=== PATIENT | female | born 1995 | race African-American/Black ===

== ENCOUNTER 2016-06-25 20:05 | Emergency (ER) | payer OTHER ==
[~2016-06-25] VITALS: Ht 160 cm; Wt 113.4 kg
[~2016-06-25 20:05] MED LIST: BACTRIM,SEPT1 TABLET PO; CEFDINIR300 MG PO; CLEOCIN150 MG PO; FLAGYL500 MG PO; KEFLEX500 MG PO; MACROBID100 MG PO; MOTRIN800 MG PO; MOUTH SORE15 ML MM; NAPROSYN500 MG PO; PYRIDIUM100 MG PO; PYRIDIUM200 MG PO; ULTRACET1 TABLET PO; ZOFRAN4 MG PO
[2016-06-25 20:29] LABS: HEMATOCRIT 37.8 % (36.0-46.0); MCHC 33.1 G/DL (30.0-36.0); MCV 69.5 FL (83-99); MEAN PLAT.VOLUME 10.7 uM^3 (9.5-12.4); PLATELET COUNT 254 K/uL (156-360); RBC DIS.WIDTH-CV 15.6 % (11.8-14.6); RBC DIS.WIDTH-SD 38.8 % (39-53); RED BLOOD COUNT 5.44 M/uL (3.80-5.20); WHITE BLOOD COUNT 7.1 K/uL (4.1-10.2)
[2016-06-25 20:50] LABS: CHLORIDE 106 mEq/L (99-109); POTASSIUM 3.5 mEq/L (3.7-5.4); SODIUM 139 mEq/L (136-147)
[2016-06-25 20:53] LABS: GLUCOSE 107 mg/dL (70-99)
[2016-06-25 20:54] LABS: ANION GAP 11 MEQ/L (2-14)
[2016-06-25 20:55] LABS: TOTAL BILIRUBIN 0.5 mg/dL (0.0-1.0)
[2016-06-25 20:56] LABS: ALKALINE PHOSPHATASE 55 IU/L (3-129); GFR ESTIMATE (CALCULATED) > 59 mL/min/
[2016-06-25 20:57] LABS: UREA NITROGEN (BUN) 12 mg/dL (9-23)
[2016-06-25 20:58] LABS: QUANTITATIVE HCG < 4.0 MIU/ML
[2016-06-25 21:00] LABS: LIPASE 19 U/L (1.0-51.0)
[2016-06-25 21:29] LABS: ADD MIUA? YES; BILIRUBIN NEGATIVE; BLOOD TRACE; COLOR YELLOW ((YELLOW)); GLUCOSE (STRIP) NEGATIVE; KETONES NEGATIVE; LEUKOCYTES LARGE; NITRITE NEGATIVE; PH, URINE 5.5 (5-8); PROTEIN (STRIP) TRACE; SPECIFIC GRAVITY 1.021 (1.000-1.030); UROBILINOGEN 0.2 MG/DL (0.2-1.0)
[2016-06-25 21:53] LABS: BACTERIA 1+ /HPF; CASTS NONE SEEN /LPF; CRYSTALS NONE SEEN; EPITHELIAL CELLS 2+ /HPF; MUCUS NONE SEEN /LPF; PATHOLOGICAL CAST NONE SEEN; SMALL ROUND CELL NONE SEEN; UCUL ADDED? YES; WHITE BLOOD CELLS TNTC /HPF (0-5); YEAST-LIKE CELL NONE SEEN
[2016-06-25] MEDS ORDERED: KEFLEX500 MG PO (23:23)
[2016-06-25 23:37] VITALS: BP 131/87
[2016-06-26 12:46] LABS: CHLAMYDIA TRACHOMATIS NEGATIVE; NEISSERIA GONORRHOEAE NEGATIVE
== END 2016-06-25 23:38 | disposition home or self-care (01) ==
LOC: RME 20:05 → EME 20:05 → RME 23:38
PROVIDERS: Physician Assistant
DX: N30.00 Acute cystitis without hematuria (principal); F17.200 Nicotine dependence, unspecified, uncomplicated
CPT/HCPCS: 76856; 80053; 81003; 83690; 84702; 85027; 87086; 87210; 87491; 87591; 99281; 99284

== ENCOUNTER 2016-07-05 20:50 | Emergency (ER) | payer OTHER ==
[~2016-07-05] VITALS: Ht 160 cm; Wt 116.4 kg
[2016-07-05 21:33] LABS: INFLUENZA A VIRAL ANTIGEN NEGATIVE; INFLUENZA B VIRAL ANTIGEN NEGATIVE
[2016-07-05] MEDS ORDERED: MOTRIN600 MG PO (22:52)
[2016-07-05] MEDS ORDERED: ZITHROMAX Z-PA250 MG PO (22:52)
[2016-07-05 23:07] VITALS: BP 165/95
== END 2016-07-05 23:09 | disposition home or self-care (01) ==
LOC: EME 20:50
DX: J06.9 Acute upper respiratory infection, unspecified (principal); H92.03 Otalgia, bilateral; R11.0 Nausea; R00.0 Tachycardia, unspecified; F17.200 Nicotine dependence, unspecified, uncomplicated
CPT/HCPCS: 71020; 87502; 99281; 99284

== ENCOUNTER 2016-09-11 22:11 | Emergency (ER) | payer OTHER ==
[~2016-09-11] VITALS: Ht 154.9 cm; Wt 115.5 kg
[~2016-09-11 22:11] MED LIST changes: +MOTRIN600 MG PO; +ZITHROMAX Z-PA250 MG PO
[2016-09-11 22:52] LABS: HEMATOCRIT 39.5 % (36.0-46.0); MCH 22.8 PG (29.0-34.0); MCHC 31.6 G/DL (30.0-36.0); MCV 72.1 FL (83-99); RBC DIS.WIDTH-CV 15.9 % (11.8-14.6); RBC DIS.WIDTH-SD 40.6 % (39-53); RED BLOOD COUNT 5.48 M/uL (3.80-5.20); WHITE BLOOD COUNT 8.3 K/uL (4.1-10.2)
[2016-09-11 23:02] LABS: CHLORIDE 105 mEq/L (99-109); POTASSIUM 4.2 mEq/L (3.7-5.4); SODIUM 141 mEq/L (136-147)
[2016-09-11 23:04] LABS: GLUCOSE 102 mg/dL (70-99)
[2016-09-11 23:05] LABS: ANION GAP 11 MEQ/L (2-14)
[2016-09-11 23:06] LABS: TOTAL BILIRUBIN 0.4 mg/dL (0.0-1.0)
[2016-09-11 23:07] LABS: ALKALINE PHOSPHATASE 54 IU/L (3-129)
[2016-09-11 23:08] LABS: GFR ESTIMATE (CALCULATED) > 59 mL/min/
[2016-09-11 23:09] LABS: UREA NITROGEN (BUN) 14 mg/dL (9-23)
[2016-09-11 23:19] LABS: QUANTITATIVE HCG < 4.0 MIU/ML
[2016-09-11 23:23] LABS: ADD MIUA? YES; BILIRUBIN NEGATIVE; BLOOD NEGATIVE; COLOR YELLOW ((YELLOW)); GLUCOSE (STRIP) NEGATIVE; KETONES NEGATIVE; LEUKOCYTES SMALL; NITRITE NEGATIVE; PROTEIN (STRIP) NEGATIVE; SPECIFIC GRAVITY 1.014 (1.000-1.030); UROBILINOGEN 0.2 MG/DL (0.2-1.0)
[2016-09-11 23:33] LABS: BACTERIA RARE /HPF; EPITHELIAL CELLS 2+ /HPF; MUCUS TRACE /LPF; RED BLOOD CELLS 0-5 /HPF (0-5); UCUL ADDED? NO; WHITE BLOOD CELLS 0-5 /HPF (0-5)
[2016-09-11] MEDS ORDERED: ZOFRAN ODT4 MG PO (23:41)
[2016-09-11] MEDS ORDERED: BENTYL10 MG PO (23:41)
[2016-09-11] MEDS ORDERED: KEFLEX500 MG PO (23:41)
[2016-09-11 23:51] VITALS: BP 150/78
[2016-09-11 23:57] LABS: PLAT.SUFFICIENCY ADEQUATE; PLATELET COUNT 262 K/uL (156-360)
== END 2016-09-11 23:52 | disposition home or self-care (01) ==
LOC: EME 22:11
DX: N39.0 Urinary tract infection, site not specified (principal); F17.200 Nicotine dependence, unspecified, uncomplicated
CPT/HCPCS: 80053; 81003; 84702; 85027; 99281; 99284

== ENCOUNTER 2017-02-01 22:53 | Emergency (ER) | payer OTHER ==
[~2017-02-01] VITALS: Ht 157.5 cm; Wt 115.8 kg
[~2017-02-01 22:53] MED LIST changes: +BENTYL10 MG PO; +ZOFRAN ODT4 MG PO
[2017-02-01 23:11] VITALS: BP 168/84
[2017-02-01 23:54] LABS: CHLORIDE 109 mEq/L (99-109); POTASSIUM 3.7 mEq/L (3.7-5.4); SODIUM 144 mEq/L (136-147)
[2017-02-01 23:56] LABS: GLUCOSE 103 mg/dL (70-99)
[2017-02-01 23:58] LABS: ANION GAP 10 MEQ/L (2-14); TOTAL BILIRUBIN 0.5 mg/dL (0.0-1.0)
[2017-02-02] LABS: ALKALINE PHOSPHATASE 57 IU/L (3-129); GFR ESTIMATE (CALCULATED) > 59 mL/min/
[2017-02-02 00:01] LABS: UREA NITROGEN (BUN) 10 mg/dL (9-23)
[2017-02-02 00:03] LABS: HEMATOCRIT 39.6 % (36.0-46.0); MCH 23.1 PG (29.0-34.0); MCHC 32.1 G/DL (30.0-36.0); RBC DIS.WIDTH-CV 15.1 % (11.8-14.6); RBC DIS.WIDTH-SD 38.7 % (39-53); WHITE BLOOD COUNT 7.6 K/uL (4.1-10.2)
[2017-02-02 00:09] LABS: QUANTITATIVE HCG < 4.0 MIU/ML
[2017-02-02 01:08] LABS: MEAN PLAT.VOLUME 10.6 uM^3 (9.5-12.4); PLAT.SUFFICIENCY ADEQUATE; PLATELET COUNT 212 K/uL (156-360)
== END 2017-02-01 23:55 | disposition left against medical advice (07) ==
LOC: EME 22:53
DX: R10.9 Unspecified abdominal pain (principal); Z53.21 Procedure and treatment not carried out due to patient leaving prior to being seen by health care provider
CPT/HCPCS: 80053; 81003; 84702; 85027

== ENCOUNTER 2017-02-04 23:49 | Emergency (ER) | payer OTHER ==
[~2017-02-04] VITALS: Ht 157.5 cm; Wt 114.4 kg
[2017-02-05 01:23] LABS: ADD MIUA? YES; BILIRUBIN NEGATIVE; BLOOD NEGATIVE; COLOR YELLOW ((YELLOW)); GLUCOSE (STRIP) NEGATIVE; KETONES NEGATIVE; LEUKOCYTES LARGE; NITRITE NEGATIVE; PROTEIN (STRIP) NEGATIVE; SPECIFIC GRAVITY 1.016 (1.000-1.030); UROBILINOGEN 0.2 MG/DL (0.2-1.0)
[2017-02-05 01:34] LABS: HEMATOCRIT 36.4 % (36.0-46.0); MCH 23.4 PG (29.0-34.0); MCHC 32.7 G/DL (30.0-36.0); MCV 71.7 FL (83-99); MEAN PLAT.VOLUME 10.7 uM^3 (9.5-12.4); PLATELET COUNT 256 K/uL (156-360); RBC DIS.WIDTH-CV 14.8 % (11.8-14.6); RBC DIS.WIDTH-SD 38.1 % (39-53); RED BLOOD COUNT 5.08 M/uL (3.80-5.20); WHITE BLOOD COUNT 8.1 K/uL (4.1-10.2)
[2017-02-05 01:47] LABS: CHLORIDE 108 mEq/L (99-109); POTASSIUM 3.9 mEq/L (3.7-5.4); SODIUM 139 mEq/L (136-147)
[2017-02-05 01:49] LABS: GLUCOSE 94 mg/dL (70-99)
[2017-02-05 01:50] LABS: ANION GAP 11 MEQ/L (2-14)
[2017-02-05 01:51] LABS: TOTAL BILIRUBIN 0.4 mg/dL (0.0-1.0)
[2017-02-05 01:53] LABS: ALKALINE PHOSPHATASE 57 IU/L (3-129); GFR ESTIMATE (CALCULATED) > 59 mL/min/
[2017-02-05 01:54] LABS: UREA NITROGEN (BUN) 14 mg/dL (9-23)
[2017-02-05 01:56] LABS: LIPASE 21 U/L (1.0-51.0)
[2017-02-05 02:03] LABS: QUANTITATIVE HCG < 4.0 MIU/ML
[2017-02-05 02:08] LABS: BACTERIA 2+ /HPF; CASTS NONE SEEN /LPF; CRYSTALS NONE SEEN; EPITHELIAL CELLS 1+ /HPF; MUCUS NONE SEEN /LPF; RED BLOOD CELLS 0-5 /HPF (0-5); UCUL ADDED? YES
[2017-02-05] MEDS ORDERED: KEFLEX500 MG PO (02:15)
[2017-02-05 02:26] VITALS: BP 128/79
== END 2017-02-05 02:27 | disposition home or self-care (01) ==
LOC: EME 23:49
PROVIDERS: Physician Assistant Medical
DX: N39.0 Urinary tract infection, site not specified (principal); F17.210 Nicotine dependence, cigarettes, uncomplicated
CPT/HCPCS: 80053; 81003; 83690; 84702; 85027; 87086; 99281; 99284; J1885

== ENCOUNTER 2017-05-08 14:15 | Emergency (ER) | payer OTHER ==
[~2017-05-08] VITALS: Ht 157.5 cm; Wt 115.9 kg
[2017-05-08 14:37] LABS: HEMATOCRIT 39.5 % (36.0-46.0); MCH 23.4 PG (29.0-34.0); MCHC 32.4 G/DL (30.0-36.0); MCV 72.3 FL (83-99); MEAN PLAT.VOLUME 10.3 uM^3 (9.5-12.4); PLATELET COUNT 248 K/uL (156-360); RBC DIS.WIDTH-SD 38.5 % (39-53); RED BLOOD COUNT 5.46 M/uL (3.80-5.20); WHITE BLOOD COUNT 5.1 K/uL (4.1-10.2)
[2017-05-08 14:44] LABS: CHLORIDE 107 mEq/L (99-109); POTASSIUM 3.7 mEq/L (3.7-5.4); SODIUM 142 mEq/L (136-147)
[2017-05-08 14:47] LABS: GLUCOSE 109 mg/dL (70-99)
[2017-05-08 14:48] LABS: ANION GAP 10 MEQ/L (2-14)
[2017-05-08 14:49] LABS: TOTAL BILIRUBIN 0.4 mg/dL (0.0-1.0)
[2017-05-08 14:50] LABS: ALKALINE PHOSPHATASE 56 IU/L (3-129)
[2017-05-08 14:51] LABS: GFR ESTIMATE (CALCULATED) > 59 mL/min/
[2017-05-08 14:52] LABS: UREA NITROGEN (BUN) 6 mg/dL (9-23)
[2017-05-08 15:01] LABS: QUANTITATIVE HCG < 4.0 MIU/ML
[2017-05-08 15:29] LABS: ADD MIUA? YES; BILIRUBIN NEGATIVE; BLOOD SMALL; COLOR YELLOW ((YELLOW)); GLUCOSE (STRIP) NEGATIVE; KETONES NEGATIVE; LEUKOCYTES MODERATE; NITRITE NEGATIVE; PROTEIN (STRIP) NEGATIVE; SPECIFIC GRAVITY 1.024 (1.000-1.030); UROBILINOGEN 0.2 MG/DL (0.2-1.0)
[2017-05-08 15:35] LABS: BACTERIA RARE /HPF; EPITHELIAL CELLS 2+ /HPF; MUCUS TRACE /LPF; RED BLOOD CELLS 0-5 /HPF (0-5); UCUL ADDED? NO; WHITE BLOOD CELLS 0-5 /HPF (0-5)
[2017-05-08] MEDS ORDERED: DOXYCYCLINE MO100 MG PO (16:46)
[2017-05-08 16:52] VITALS: BP 134/76
[2017-05-09 14:24] LABS: CHLAMYDIA TRACHOMATIS NEGATIVE; NEISSERIA GONORRHOEAE NEGATIVE
== END 2017-05-08 17:01 | disposition home or self-care (01) ==
LOC: EME 14:15
PROVIDERS: Physician Assistant
DX: N73.9 Female pelvic inflammatory disease, unspecified (principal); F17.200 Nicotine dependence, unspecified, uncomplicated
CPT/HCPCS: 80053; 81003; 84702; 85027; 87210; 87491; 87591; 99281; 99284

== ENCOUNTER 2017-06-13 09:39 | Emergency (ER) | payer OTHER ==
[~2017-06-13] VITALS: Ht 157.5 cm; Wt 115.9 kg
[~2017-06-13 09:39] MED LIST changes: +DOXYCYCLINE MO100 MG PO
[2017-06-13 10:24] LABS: ALBUMIN 4.4 g/dL (3.2-4.8); CHLORIDE 109 mEq/L (99-109); POTASSIUM 3.6 mEq/L (3.7-5.4); SODIUM 141 mEq/L (136-147)
[2017-06-13 10:26] LABS: GLUCOSE 97 mg/dL (70-99); TOTAL PROTEIN 7.8 g/dL (6.4-8.3)
[2017-06-13 10:28] LABS: TOTAL BILIRUBIN 0.6 mg/dL (0.0-1.0)
[2017-06-13 10:30] LABS: ALKALINE PHOSPHATASE 66 IU/L (3-129); CREATININE 0.9 mg/dL (0.6-1.3); GFR ESTIMATE (CALCULATED) > 59 mL/min/
[2017-06-13 10:31] LABS: UREA NITROGEN (BUN) 11 mg/dL (9-23)
[2017-06-13 10:32] LABS: AST (GOT) 18 IU/L (2-34)
[2017-06-13 10:33] LABS: ALT (GPT) 17 IU/L (3-49)
[2017-06-13 10:36] LABS: APPEARANCE CLEAR ((CLEAR)); BILIRUBIN NEGATIVE; BLOOD SMALL; COLOR YELLOW ((YELLOW)); GLUCOSE (STRIP) NEGATIVE; KETONES NEGATIVE; LEUKOCYTES NEGATIVE; NITRITE NEGATIVE; PROTEIN (STRIP) NEGATIVE; SPECIFIC GRAVITY 1.016 (1.000-1.030); UROBILINOGEN 0.2 MG/DL (0.2-1.0)
[2017-06-13 10:38] LABS: QUANTITATIVE HCG < 4.0 MIU/ML
[2017-06-13 10:40] LABS: BACTERIA RARE /HPF; EPITHELIAL CELLS 1+ /HPF; MUCUS NONE SEEN /LPF; RED BLOOD CELLS 0-5 /HPF (0-5); UCUL ADDED? NO; WHITE BLOOD CELLS 0-5 /HPF (0-5)
[2017-06-13 10:46] LABS: HEMATOCRIT 42.2 % (36.0-46.0); HEMOGLOBIN 13.7 G/DL (11.9-15.5); MCH 23.5 PG (29.0-34.0); MCHC 32.5 G/DL (30.0-36.0); MCV 72.4 FL (83-99); PLATELET COUNT 273 K/uL (156-360); RBC DIS.WIDTH-CV 15.3 % (11.8-14.6); RBC DIS.WIDTH-SD 39.2 % (39-53); RED BLOOD COUNT 5.83 M/uL (3.80-5.20); WHITE BLOOD COUNT 4.8 K/uL (4.1-10.2)
[2017-06-13 12:30] VITALS: BP 123/78
== END 2017-06-13 12:35 | disposition home or self-care (01) ==
LOC: EME 09:39
DX: R10.30 Lower abdominal pain, unspecified (principal); F17.200 Nicotine dependence, unspecified, uncomplicated
CPT/HCPCS: 74176; 80053; 81003; 84702; 85027; 99281; 99285

== ENCOUNTER 2017-09-11 14:13 | Emergency (ER) | payer OTHER ==
[~2017-09-11] VITALS: Ht 157.5 cm; Wt 117.4 kg
[2017-09-11 16:24] LABS: ALBUMIN 3.8 g/dL (3.2-4.8); CHLORIDE 109 mEq/L (99-109); POTASSIUM 4.2 mEq/L (3.7-5.4); SODIUM 144 mEq/L (136-147)
[2017-09-11 16:26] LABS: GLUCOSE 97 mg/dL (70-99)
[2017-09-11 16:27] LABS: TOTAL PROTEIN 7.2 g/dL (6.4-8.3)
[2017-09-11 16:28] LABS: TOTAL BILIRUBIN 0.5 mg/dL (0.0-1.0)
[2017-09-11 16:30] LABS: ALKALINE PHOSPHATASE 70 IU/L (3-129); CREATININE 0.8 mg/dL (0.6-1.3); GFR ESTIMATE (CALCULATED) > 59 mL/min/
[2017-09-11 16:31] LABS: UREA NITROGEN (BUN) 10 mg/dL (9-23)
[2017-09-11 16:32] LABS: AST (GOT) 16 IU/L (2-34)
[2017-09-11 16:33] LABS: ALT (GPT) 14 IU/L (3-49); LIPASE 20 U/L (1.0-51.0)
[2017-09-11 16:41] LABS: QUANTITATIVE HCG < 4.0 MIU/ML
[2017-09-11 16:46] LABS: HEMATOCRIT 40.1 % (36.0-46.0); HEMOGLOBIN 13.1 G/DL (11.9-15.5); MCH 23.9 PG (29.0-34.0); MCHC 32.7 G/DL (30.0-36.0); MCV 73.3 FL (83-99); PLATELET COUNT 276 K/uL (156-360); RBC DIS.WIDTH-SD 39.4 % (39-53); RED BLOOD COUNT 5.47 M/uL (3.80-5.20); WHITE BLOOD COUNT 6.5 K/uL (4.1-10.2)
[2017-09-11 17:11] LABS: APPEARANCE SL.HAZY ((CLEAR)); BILIRUBIN NEGATIVE; BLOOD NEGATIVE; COLOR YELLOW ((YELLOW)); GLUCOSE (STRIP) NEGATIVE; KETONES NEGATIVE; LEUKOCYTES NEGATIVE; NITRITE NEGATIVE; PROTEIN (STRIP) NEGATIVE; SPECIFIC GRAVITY 1.019 (1.000-1.030)
[2017-09-11 17:20] LABS: BACTERIA RARE /HPF; EPITHELIAL CELLS 1+ /HPF; MUCUS TRACE /LPF; WHITE BLOOD CELLS 0-5 /HPF (0-5)
[2017-09-11] MEDS ORDERED: NEXIUM20 MG PO (17:24)
[2017-09-11] MEDS ORDERED: ZOFRAN ODT4 MG PO (17:24)
[2017-09-11 17:35] VITALS: BP 141/80
== END 2017-09-11 17:36 | disposition home or self-care (01) ==
LOC: EME 14:13
PROVIDERS: Nurse Practitioner Family
DX: R10.9 Unspecified abdominal pain (principal); K08.89 Other specified disorders of teeth and supporting structures; R11.2 Nausea with vomiting, unspecified; R19.7 Diarrhea, unspecified; F17.200 Nicotine dependence, unspecified, uncomplicated
CPT/HCPCS: 74022; 80053; 81003; 83690; 84702; 85027; 99281; 99284

== ENCOUNTER 2017-09-20 07:25 | Emergency (ER) | payer OTHER ==
[~2017-09-20] VITALS: Ht 157.5 cm; Wt 119.4 kg
[~2017-09-20 07:25] MED LIST changes: +NEXIUM20 MG PO
[2017-09-20 08:11] LABS: APPEARANCE SL.HAZY ((CLEAR)); BILIRUBIN NEGATIVE; BLOOD NEGATIVE; COLOR YELLOW ((YELLOW)); GLUCOSE (STRIP) NEGATIVE; KETONES NEGATIVE; LEUKOCYTES LARGE; NITRITE NEGATIVE; PROTEIN (STRIP) NEGATIVE; SPECIFIC GRAVITY 1.016 (1.000-1.030); UROBILINOGEN 0.2 MG/DL (0.2-1.0)
[2017-09-20 08:40] LABS: BACTERIA RARE /HPF; EPITHELIAL CELLS 3+ /HPF; MUCUS TRACE /LPF; WHITE BLOOD CELLS 0-5 /HPF (0-5)
[2017-09-20] MEDS ORDERED: MOTRIN800 MG PO (09:05)
[2017-09-20] MEDS ORDERED: ZITHROMAX Z-PA250 MG PO (09:05)
[2017-09-20] MEDS ORDERED: TESSALON PERLE100 MG PO (09:05)
[2017-09-20 09:30] VITALS: BP 125/78
== END 2017-09-20 21:49 | disposition home or self-care (01) ==
LOC: EME 07:25
PROVIDERS: Nurse Practitioner Family
DX: J18.9 Pneumonia, unspecified organism (principal); K08.89 Other specified disorders of teeth and supporting structures; F17.200 Nicotine dependence, unspecified, uncomplicated
CPT/HCPCS: 71046; 81003; 81025; 99281; 99283

== ENCOUNTER 2017-09-20 19:37 | Emergency (ER) | payer OTHER ==
[~2017-09-20] VITALS: Ht 157.5 cm; Wt 121.7 kg
[~2017-09-20 19:37] MED LIST changes: +TESSALON PERLE100 MG PO
[2017-09-20 21:49] VITALS: BP 156/93
== END 2017-09-20 21:49 | disposition home or self-care (01) ==
LOC: EME 19:37
DX: J18.9 Pneumonia, unspecified organism (principal); F17.200 Nicotine dependence, unspecified, uncomplicated
CPT/HCPCS: 94640; 99281; 99283

== ENCOUNTER 2017-11-16 10:33 | Emergency (ER) | payer BC ==
[~2017-11-16] VITALS: Ht 157.5 cm; Wt 118.7 kg
[2017-11-16 11:12] LABS: ALBUMIN 3.7 g/dL (3.2-4.8); HEMATOCRIT 39.1 % (36.0-46.0); HEMOGLOBIN 12.9 G/DL (11.9-15.5); MCH 23.8 PG (29.0-34.0); RBC DIS.WIDTH-CV 15.6 % (11.8-14.6); RBC DIS.WIDTH-SD 39.8 % (39-53); RED BLOOD COUNT 5.43 M/uL (3.80-5.20); WHITE BLOOD COUNT 5.4 K/uL (4.1-10.2)
[2017-11-16 11:13] LABS: CHLORIDE 105 mEq/L (99-109); POTASSIUM 3.9 mEq/L (3.7-5.4); SODIUM 139 mEq/L (136-147)
[2017-11-16 11:15] LABS: GLUCOSE 132 mg/dL (70-99); TOTAL PROTEIN 6.8 g/dL (6.4-8.3)
[2017-11-16 11:18] LABS: ALKALINE PHOSPHATASE 61 IU/L (3-129)
[2017-11-16 11:19] LABS: CREATININE 0.9 mg/dL (0.6-1.3); GFR ESTIMATE (CALCULATED) > 59 mL/min/
[2017-11-16 11:20] LABS: AST (GOT) 14 IU/L (2-34); UREA NITROGEN (BUN) 10 mg/dL (9-23)
[2017-11-16 11:22] LABS: ALT (GPT) 12 IU/L (3-49)
[2017-11-16 11:30] LABS: QUANTITATIVE HCG < 4.0 MIU/ML
[2017-11-16 11:50] LABS: APPEARANCE CLEAR ((CLEAR)); BILIRUBIN NEGATIVE; BLOOD NEGATIVE; COLOR YELLOW ((YELLOW)); GLUCOSE (STRIP) NEGATIVE; KETONES NEGATIVE; LEUKOCYTES NEGATIVE; NITRITE NEGATIVE; PROTEIN (STRIP) NEGATIVE; SPECIFIC GRAVITY 1.016 (1.000-1.030); UCUL ADDED? NO
[2017-11-16 11:57] LABS: HEMATOLOGY COMMENT 1 SN; PLAT.SUFFICIENCY ADEQUATE; PLATELET COUNT 190 K/uL (156-360)
[2017-11-16 15:05] VITALS: BP 126/73
[2017-11-17 07:22] LABS: SOURCE SWAB
== END 2017-11-16 15:05 | disposition home or self-care (01) ==
LOC: EME 10:33
PROVIDERS: Emergency Medicine
DX: A59.01 Trichomonal vulvovaginitis (principal); R10.30 Lower abdominal pain, unspecified; F17.200 Nicotine dependence, unspecified, uncomplicated
CPT/HCPCS: 80053; 81003; 84702; 85027; 87210; 87491; 87591; 99281; 99285

== ENCOUNTER 2017-12-11 00:43 | Emergency (ER) | payer BC ==
[~2017-12-11] VITALS: Ht 157.5 cm; Wt 119.2 kg
[2017-12-11] MEDS ORDERED: MEDROL DOSEPAK4 MG PO (01:57)
[2017-12-11] MEDS ORDERED: ZITHROMAX Z-PA250 MG PO (01:57)
[2017-12-11 02:39] VITALS: BP 151/101
== END 2017-12-11 02:40 | disposition home or self-care (01) ==
LOC: EXP 00:43 → EME 00:43 → EXP 02:40
DX: J02.9 Acute pharyngitis, unspecified (principal); H66.91 Otitis media, unspecified, right ear; F17.200 Nicotine dependence, unspecified, uncomplicated
CPT/HCPCS: J7512